=== PATIENT | female | born 2000 | race Caucasian/White ===

== ENCOUNTER 2020-09-24 14:55 | Outpatient (REF) | payer MEDICAID, SELFPAY | END 2020-09-24 14:56 | disposition home or self-care (01) | LOC: HO.LAB 14:55 | PROVIDERS: Visit Provider Internal Medicine | DX: Z20.822 Contact with and (suspected) exposure to COVID-19 (principal) | CPT/HCPCS: 36415; C9803; U0003 ==

== ENCOUNTER → 2025-05-09 12:29 | Outpatient (BNVA) | payer SELFPAY | PROVIDERS: Visit Provider Physician Assistant | DX: Z02.1 Encounter for pre-employment examination (principal); R76.11 Nonspecific reaction to tuberculin skin test without active tuberculosis ==